=== PATIENT | male | born 1965 | race Caucasian/White ===

== ENCOUNTER 2020-08-02 12:50 | Inpatient (IN) | payer SELFPAY ==
[2020-08-02 13:22] LABS: Bacteria/HPF None Seen HPF (None Seen); Bilirubin Negative (Negative); Blood, Urine Negative (Negative); Clarity Clear (Clear); Glucose, Urine (Dipstick) Greater than 1000 mg/dL (Negative); Ketone, Urine 10 mg/dL (Negative); Leukocyte Negative Leu/uL (Negative); Nitrite Negative (Negative); Protein, Urine (Dipstick) 50 mg/dL (Neg-Trace); RBC/HPF 0-3 HPF (0-3); Squamous Epithelial None Seen HPF (0-3); Urobilinogen Normal mg/dL (Less than 2); WBC/HPF 0-3 HPF (0-3); pH, Urine 5.5 (5.0-9.0)
[2020-08-02 13:50] LABS: #Eosinphils 0.2 thou/uL (0.0-0.7); #Lymphocytes 1.3 thou/uL (1.20-3.40); #Monocytes 0.4 thou/uL (0.11-0.59); #Neutrophils 4.9 thou/uL (1.40-6.50); %Basophils 0.4 % (0.0-1.0); %Eosinophils 2.4 % (0.0-10.0); %Lymphocytes 18.7 % (21.0-51.0); %Monocytes 5.4 % (0.0-10.0); %Neutrophils 73.1 % (42.0-75.0); Hemoglobin 15.3 g/dL (14.0-18.0); Mean Corpuscular HGB CONC 34.9 g/dL (32.0-36.0); Mean Corpuscular Hemoglobin 31.4 pg (27.0-31.0); Mean Corpuscular Volume 89.8 fL (78.0-98.0); Platelet Count 179 thou/uL (130-400); RBC Distribution Width 11.4 % (11.5-14.5); Red Blood Cell (RBC) Count 4.89 mill/uL (4.70-6.10); White Blood Cell (WBC) Count 6.7 thou/uL (4.8-10.8)
--- NOTE | 2020-08-02 13:53 | CT ---
Exam: Head CT without contrast HISTORY: Right-sided paralysis. Altered mental status COMPARISON: none FINDINGS: Hemorrhage: No intraparenchymal hemorrhage or extra-axial hematoma. Brain parenchyma: Cortical dahl-white matter differentiation is preserved. No mass effect or midline shift. Basilar cisterns are patent. Ventricular system: Ventricles and sulci are patent and symmetric. Calvarium: Intact. Sinuses and mastoid air cells: Adequate aeration. IMPRESSION: No acute intracranial process.
[2020-08-02 14:15] LABS: ALT (SGPT) 33 U/L (8-55); AST (SGOT) 22 U/L (5-34); Albumin 4.2 g/dL (3.5-5.0); Alkaline Phosphatase 73 U/L (40-110); Anion Gap 15 mmol/L (10-20); BUN (Urea Nitrogen) 18 mg/dL (8.4-25.7); Bilirubin, Total 0.4 mg/dL (0.2-1.2); Calc. Creatinine Clearance 0 mL/min (70-130); Calcium 9.5 mg/dL (7.8-10.44); Carbon Dioxide 24 mmol/L (22-29); Chloride 103 mmol/L (98-107); Globulin 3.1 g/dL (2.4-3.5); Glucose 386 mg/dL (70-105); Potassium 3.9 mmol/L (3.5-5.1); Protein, Total 7.3 g/dL (6.0-8.3); Sodium 138 mmol/L (136-145)
[2020-08-02 14:37] LABS: CKMB 3.1 ng/mL (0-6.6)
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
[2020-08-02 18:26] LABS: SARS-CoV-2 NAA Rapid Test Not Detected (NotDetected)
[2020-08-02 18:39] LABS: Troponin I 0.083 ng/mL (< 0.028)
[2020-08-02] MEDS ORDERED: Dextrose 50% Abboject 50 ML SYRINGE SLOW IVP PRN (19:14)
[2020-08-02] MEDS ORDERED: Dextrose 5% in Water 1,000 ML IV PRN (19:14)
[2020-08-02] MEDS: Atorvastatin Calcium 40 MG TAB PO SCH (20:11)
[2020-08-02] MEDS: Insulin Glargine 10 UNITS in Pre-Filled Syringe SC SCH (20:43)
[2020-08-02 20:51] VITALS: BMI 38.0
--- NOTE | 2020-08-02 21:26 | ULT ---
CAROTID DOPPLER: Ultrasound doppler study is performed on the extracranial carotid arteries. Indications: Right sided weakness. FINDINGS: Ultrasound and doppler study is performed with color doppler, spectral analysis and velocity recordin gs. Images show intimal thickening bilaterally. Mild echogenic plaque. Velocities within normal range in both internal carotid arteries. No evidence of hemodynamically sign ificant stenosis involving either extracranial internal carotid artery. The vertebral arteries are antegrade. IMPRESSION: 1. Intimal thickening and mild echogenic plaque. 2. No evidence of significant stenosis. POS: AGW
[2020-08-02 21:56] LABS: Troponin I 0.083 ng/mL (< 0.028)
[2020-08-03 05:43] LABS: #Eosinphils 0.2 thou/uL (0.0-0.7); #Lymphocytes 1.8 thou/uL (1.20-3.40); #Monocytes 0.5 thou/uL (0.11-0.59); #Neutrophils 3.5 thou/uL (1.40-6.50); %Basophils 0.4 % (0.0-1.0); %Eosinophils 3.8 % (0.0-10.0); %Lymphocytes 29.8 % (21.0-51.0); Hemoglobin 14.7 g/dL (14.0-18.0); Mean Corpuscular HGB CONC 35.8 g/dL (32.0-36.0); Mean Corpuscular Hemoglobin 31.9 pg (27.0-31.0); Mean Corpuscular Volume 89.1 fL (78.0-98.0); Platelet Count 156 thou/uL (130-400); RBC Distribution Width 11.4 % (11.5-14.5)
[2020-08-03 06:26] LABS: Anion Gap 13 mmol/L (10-20); BUN (Urea Nitrogen) 14 mg/dL (8.4-25.7); Calc. Creatinine Clearance 174 mL/min (70-130); Carbon Dioxide 25 mmol/L (22-29); Cardiac Risk 7.8 (Less than 4.5); Chloride 104 mmol/L (98-107); Cholesterol 296 mg/dl (< 200 Desired); Glucose 243 mg/dL (70-105); HDL Cholesterol 38 mg/dL (>60 Neg Risk); LDL Cholesterol, Calculated 200 mg/dL; Sodium 138 mmol/L (136-145); Triglycerides 289 mg/dL (Less than 150)
[2020-08-03] MEDS: HumaLOG 300 UNITS/3 ML VIAL SC PRN ×3 (07:53→18:08)
[2020-08-03] MEDS ORDERED: FLU VACC QS2020-21(6MOS UP)/PF 60 MCG/0.5 ML SYRINGE IM ONE (09:00)
[2020-08-03] MEDS: Enoxaparin Sodium 40 MG/0.4 ML SYRINGE SC SCH (09:26)
[2020-08-03] MEDS: Aspirin 325 mg Enteric Coated Tablet PO SCH (09:26)
[2020-08-03] MEDS: Lorazepam 1 MG TAB PO PRN ×2 (12:21→20:45)
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
[2020-08-03] MEDS: Nicotine 14 MG PATCH TD SCH (13:37)
--- NOTE | 2020-08-03 18:42 | PDOC.HOSPP ---
- Subjective Encounter Date: 08/03/20 Subjective: Feeling ok in general. Still has about the same weakness on the right side. Tried MRI today, but couldn't tolerate it. He dips 2-3 cans of snuff per day and was feeling he withdrawal. He took a dip and that helped. - Objective Vital Signs & Weight: Vital Signs (12 hours) Temp Pulse Pulse Pulse Resp BP BP 08/03/20 15:35 98.5 F 94 16 08/03/20 13:40 91 89 133/78 158/73 H 08/03/20 11:00 97.7 F 85 20 08/03/20 10:43 85 82 134/80 142/77 H 08/03/20 07:53 98.2 F 82 20 BP BP Pulse Ox 08/03/20 15:35 136/76 98 08/03/20 13:40 08/03/20 11:00 134/80 96 08/03/20 10:43 08/03/20 07:53 121/83 96 Weight Weight 242 lb 11.2 oz I&O: 08/02/20 08/03/20 08/04/20 06:59 06:59 06:59 Intake Total 340 1200 Output Total 500 Balance -160 1200 Result Diagrams: 08/03/20 05:17 08/03/20 05:16 Additional Labs: Accuchecks 08/03/20 08/03/20 08/02/20 17:33 12:32 20:16 POC Glucose 322 H 231 H 257 H Hospitalist ROS - Medication Medications: Active Medications Generic Name Dose Route Start Last Admin Trade Name Yen PRN Reason Stop Dose Admin Aspirin 325 mg 08/03/20 09:00 08/03/20 09:26 Aspirin 325 Mg Enteric Coated Tablet PO 325 mg DAILY SHERICE Administration Atorvastatin Calcium 40 mg 08/02/20 21:00 08/02/20 20:11 Atorvastatin Calcium 40 Mg Tab PO 40 mg HS SHERICE Administration Enoxaparin Sodium 40 mg 08/03/20 09:00 08/03/20 09:26 Enoxaparin Sodium 40 Mg/0.4 Ml Syringe SC 40 mg 0900 SHERICE Administration Insulin Glargine 10 units/ 0.1 mls @ 0 mls/hr 08/02/20 21:00 08/02/20 20:43 Miscellaneous Medication SC 0.1 mls HS SHERICE Administration Insulin Human Lispro 0 units 08/02/20 19:14 08/03/20 18:08 Humalog 300 Units/3 Ml Vial SC 8 unit .MODERATE SLIDING SC PRN Administration Moderate Correctional Scale Lorazepam 1 mg 08/03/20 08:54 08/03/20 12:21 Lorazepam 1 Mg Tab PO 1 mg Q4H PRN Administration Anxiety/Agitation Nicotine 14 mg 08/03/20 12:00 08/03/20 13:37 Nicotine 14 Mg Patch TD 14 mg Q24HR SHERICE Administration Sodium Chloride 10 ml 08/02/20 19:14 08/03/20 09:27 Flush - Normal Saline 10 Ml Syringe IVF 10 ml PRN PRN Administration Saline Flush Hospitalist Exam Vitals: Vital Signs (12 hours) Temp Pulse Pulse Pulse Resp BP BP 08/03/20 15:35 98.5 F 94 16 08/03/20 13:40 91 89 133/78 158/73 H 08/03/20 11:00 97.7 F 85 20 08/03/20 10:43 85 82 134/80 142/77 H 08/03/20 07:53 98.2 F 82 20 BP BP Pulse Ox 08/03/20 15:35 136/76 98 08/03/20 13:40 08/03/20 11:00 134/80 96 08/03/20 10:43 08/03/20 07:53 121/83 96 Weight Weight 242 lb 11.2 oz General Appearance: NAD, awake alert Neck: supple, symmetric, no JVD Heart: RRR, no murmur, no gallops, no rubs Respiratory: CTAB, no wheezes, no rales, no ronchi Gastrointestinal: soft, non-tender, non-distended, normal bowel sounds Extremities: no cyanosis, no clubbing, no edema Skin: normal turgor Neurological - other findings: RUE and RLE weakness. Psychiatric: normal affect, normal behavior, A&O x 3 Hosp A/P (1) Right hemiplegia Code(s): G81.91 - HEMIPLEGIA, UNSPECIFIED AFFECTING RIGHT DOMINANT SIDE Status: Acute (2) Hypertension Code(s): I10 - ESSENTIAL (PRIMARY) HYPERTENSION Status: Acute (3) Alcohol abuse Code(s): F10.10 - ALCOHOL ABUSE, UNCOMPLICATED Status: Chronic (4) Diabetes mellitus type 2 in obese Code(s): E11.69 - TYPE 2 DIABETES MELLITUS WITH OTHER SPECIFIED COMPLICATION; E66.9 - OBESITY, UNSPECIFIED Status: Chronic (5) Tobacco abuse Code(s): Z72.0 - TOBACCO USE Status: Chronic (6) HLD (hyperlipidemia) Code(s): E78.5 - HYPERLIPIDEMIA, UNSPECIFIED Status: Acute - Plan Right hemiplegia (incomplete): Concerning for CVA. Initial CT was negative. Unable to get MRI today due to patient anxiety. Neuro consult appreciated. Added C-spine MRI. PT/OT. Aspirin, Statin. DM: Blood sugars consistently over 200 on Lantus 10 and aggressive SSI. Check A1c. Increase Lantus. Tobacco abuse: Nicotine patch. Alcohol abuse: PRN bzd's. Appears quite calm with normal affect at the time of my exam. HLD: Statin.
[2020-08-03] MEDS: Insulin Glargine 10 UNITS in Pre-Filled Syringe SC SCH (20:37)
[2020-08-03] MEDS: Atorvastatin Calcium 40 MG TAB PO SCH (20:42)
[2020-08-03] MEDS: Acetaminophen 325 MG TAB PO PRN (20:44)
[2020-08-04] MEDS: HumaLOG 300 UNITS/3 ML VIAL SC PRN ×4 (05:06→20:42)
[2020-08-04 05:44] LABS: Hemoglobin A1c 10.8 % (4.0-6.0)
[2020-08-04] MEDS ORDERED: Bisacodyl 5 MG TAB PO PRN (08:08)
[2020-08-04] MEDS ORDERED: Sodium Chloride 0.65% Nasal 44 ML BOT EA NARE PRN (08:08)
[2020-08-04] MEDS ORDERED: Cepastat Lozenges 1 LOZ PO PRN (08:08)
[2020-08-04] MEDS ORDERED: Ondansetron PF 4 MG/2 ML Vial IVP PRN (08:08)
[2020-08-04] MEDS ORDERED: Zolpidem Tartrate 5 MG TAB PO PRN (08:08)
[2020-08-04] MEDS ORDERED: Senokot S 8.6-50 MG TAB PO PRN (08:08)
[2020-08-04] MEDS ORDERED: GUAIFENESIN SF SOLN 200 MG/10 ML UDCUP PO PRN (08:08)
[2020-08-04] MEDS ORDERED: hydrALAZINE 20 MG/ML VIAL SLOW IVP PRN (08:08)
[2020-08-04] MEDS ORDERED: Benzonatate 100 MG CAP PO PRN (08:08)
[2020-08-04] MEDS ORDERED: HYDROcodone/Acetaminophen 5/325 mg Tablet PO PRN (08:08)
[2020-08-04] MEDS ORDERED: Ondansetron ODT 4 MG TAB PO PRN (08:08)
[2020-08-04] MEDS ORDERED: Calcium Carbonate 500 MG ChewTAB PO PRN (08:08)
[2020-08-04] MEDS ORDERED: Loperamide HCl 2 MG CAP PO PRN (08:08)
[2020-08-04] MEDS ORDERED: Loratadine 10 MG TAB PO PRN (08:08)
[2020-08-04] MEDS: Acetaminophen 325 MG TAB PO PRN (08:50)
[2020-08-04] MEDS: Aspirin 325 mg Enteric Coated Tablet PO SCH (08:50)
[2020-08-04] MEDS: Enoxaparin Sodium 40 MG/0.4 ML SYRINGE SC SCH (08:51)
[2020-08-04] MEDS ORDERED: Insulin Glargine 10 UNITS in Pre-Filled Syringe 1 EACH SC SCH ×2 (09:00→21:00)
[2020-08-04] MEDS ORDERED: Lorazepam 2 MG/ML VIAL SLOW IVP SCH (10:30)
[2020-08-04] MEDS: Nicotine 14 MG PATCH TD SCH (11:26)
--- NOTE | 2020-08-04 11:49 | PDOC.HOSPP ---
- Subjective Encounter Date: 08/04/20 Encounter Time: 08:15 Subjective: Patient seen and examined. No new complaints. No overnight events, patient has right-sided weakness, patient is willing to go for MRI but he is claustrophobic - Objective Vital Signs & Weight: Vital Signs (12 hours) Temp Pulse Resp BP Pulse Ox 08/04/20 08:00 97.8 F 94 20 139/72 95 08/04/20 03:34 97.7 F 62 16 117/57 L 98 08/04/20 00:00 98.6 F 79 14 139/69 98 Weight Weight 242 lb 11.2 oz I&O: 08/03/20 08/04/20 08/05/20 06:59 06:59 06:59 Intake Total 340 1200 Output Total 500 Balance -160 1200 Result Diagrams: 08/03/20 05:17 08/03/20 05:16 Additional Labs: Accuchecks 08/04/20 08/04/20 08/03/20 10:52 05:03 20:36 POC Glucose 376 H 257 H 162 H 08/03/20 08/03/20 08/03/20 17:33 12:32 10:49 POC Glucose 322 H 231 H 257 H Radiology Reviewed by me: Yes Hospitalist ROS - Review of Systems ENT: denies: ear pain, ear discharge, nose pain, nose discharge, nose congest ion, mouth pain, mouth swelling, throat pain, throat swelling, other Respiratory: denies: cough, dry, shortness of breath, hemoptysis, SOB with excertion, pleuritic pain, sputum, wheezing, other Cardiovascular: denies: chest pain, palpitations, orthopnea, paroxysmal noc. dyspnea, edema, light headedness, other Gastrointestinal: denies: nausea, vomiting, abdominal pain, diarrhea, constipation, melena, hematochezia, other Genitourinary: denies: dysuria, frequency, incontinence, hematuria, retention, other Musculoskeletal: reports: neck pain, shoulder pain. denies: arm pain, back pain, hand pain, leg pain, foot pain, other Skin: denies: rash, lesions, maribel, bruising, other Neurological: reports: weakness. denies: numbness, incoordination, change in speech, confusion, seizures, other - Medication Medications: Active Medications Generic Name Dose Route Start Last Admin Trade Name Freq PRN Reason Stop Dose Admin Acetaminophen 650 mg 08/02/20 19:14 08/04/20 08:50 Acetaminophen 325 Mg Tab PO 650 mg Q4H PRN Administration Headache/Fever/Mild Pain (1-3) Aspirin 325 mg 08/03/20 09:00 08/04/20 08:50 Aspirin 325 Mg Enteric Coated Tablet PO 325 mg DAILY SHERICE Administration Atorvastatin Calcium 40 mg 08/02/20 21:00 08/03/20 20:42 Atorvastatin Calcium 40 Mg Tab PO 40 mg HS SHERICE Administration Enoxaparin Sodium 40 mg 08/03/20 09:00 08/04/20 08:51 Enoxaparin Sodium 40 Mg/0.4 Ml Syringe SC 40 mg 0900 SHERICE Administration Insulin Glargine 10 units/ 0.1 mls @ 0 mls/hr 08/04/20 09:00 08/04/20 10:11 Miscellaneous Medication SC 0.1 mls QAM SHERICE Administration Insulin Human Lispro 0 units 08/02/20 19:14 08/04/20 11:20 Humalog 300 Units/3 Ml Vial SC 13 unit .AGGRESSIVE SLIDING PRN Administration Aggressive Correctional Scale Lorazepam 1 mg 08/03/20 08:54 08/03/20 20:45 Lorazepam 1 Mg Tab PO 1 mg Q4H PRN Administration Anxiety/Agitation Nicotine 14 mg 08/03/20 12:00 08/04/20 11:26 Nicotine 14 Mg Patch TD 14 mg Q24HR SHERICE Administration Sodium Chloride 10 ml 08/02/20 19:14 08/03/20 20:42 Flush - Normal Saline 10 Ml Syringe IVF 10 ml PRN PRN Administration Saline Flush Hospitalist Exam Vitals: Vital Signs (12 hours) Temp Pulse Resp BP Pulse Ox 08/04/20 08:00 97.8 F 94 20 139/72 95 08/04/20 03:34 97.7 F 62 16 117/57 L 98 08/04/20 00:00 98.6 F 79 14 139/69 98 Weight Weight 242 lb 11.2 oz General Appearance: NAD, awake alert Eye: PERRL, anicteric sclera ENT: normocephalic atraumatic, no oropharyngeal lesions Neck: supple, symmetric, no JVD, no thyromegaly Heart: RRR, no murmur, no gallops, no rubs Respiratory: no wheezes, no rales, no ronchi Gastrointestinal: soft, non-tender, non-distended Extremities: no cyanosis, no clubbing, no edema Skin: normal turgor, no lesions Neurological - other findings: On examination patient has right-sided weakness, Musculoskeletal: normal tone, normal strength, no muscle wasting Psychiatric: normal affect, normal behavior, A&O x 3 Hosp A/P (1) Right hemiplegia Code(s): G81.91 - HEMIPLEGIA, UNSPECIFIED AFFECTING RIGHT DOMINANT SIDE Status: Acute (2) HLD (hyperlipidemia) Code(s): E78.5 - HYPERLIPIDEMIA, UNSPECIFIED Status: Acute (3) Hypertension Code(s): I10 - ESSENTIAL (PRIMARY) HYPERTENSION Status: Acute (4) Alcohol abuse Code(s): F10.10 - ALCOHOL ABUSE, UNCOMPLICATED Status: Chronic (5) Diabetes mellitus type 2 in obese Code(s): E11.69 - TYPE 2 DIABETES MELLITUS WITH OTHER SPECIFIED COMPLICATION; E66.9 - OBESITY, UNSPECIFIED Status: Chronic (6) Tobacco abuse Code(s): Z72.0 - TOBACCO USE Status: Chronic - Plan old records reviewed/req, PT/OT, DVT proph w/lovenox Today we will try to get MRI brain and MRI cervical spine, patient is claustrophobic so we will give him lorazepam 2 mg IV one-time dose before MRI, His blood sugar is well not controlled so we will increase his insulin to twice daily, Expecting his discharge tomorrow, Continue Lipitor 40 mg p.o. nightly and aspirin 325 mg p.o. daily, Neurology following
--- NOTE | 2020-08-04 13:21 | MRI ---
EXAM: MRI of the brain without contrast HISTORY: Right-sided weakness since Sunday COMPARISON: None TECHNIQUE: Multiplanar multisequence MR images were obtained of the brain without IV contrast. FINDINGS: Scattered subtle foci of high T2/FLAIR signal in the subcortical and periventricular white matter are likely secondary to small vessel ischemic disease. There is a 8 mm small area of restricted diffusion and high FLAIR signal in the left aspect of the po ns. No hydronephrosis. No extra-axial fluid collection or intracranial hemorrhage. The expected flow voids are present. Corpus callosum, pituitary, and craniocervical junction are within normal limits. The calvarium and overlying soft tissues are unremarkable. The paranasal sinuses and mastoid air cells are well aerated. IMPRESSION: Small acute infarction in the left aspect of the laura.
--- NOTE | 2020-08-04 14:03 | MRI ---
MRI CERVICAL SPINE NONCONTRAST: 08/04/20 HISTORY: 54-year-old male with right upper extremity weakness. FINDINGS: Bone marrow signal is essentially normal. Vertebral body heights are maintained. No high grade disc s pace narrowing at any level. Cervical spinal cord is normal in size and signal. No syrinx. Cervical spinal canal is diffusely small in caliber on a congenital basis due to developmentally shor t pedicles. No high grade facet DJD at any level except for right C2-3 where there is moderate facet DJD. C1-2: No central spinal canal stenosis. C2-3: No central spinal canal or left neural foraminal stenosis. Mild right neural foraminal stenosis due to the facet hypertrophy. C3-4: Mild central canal stenosis, almost entirely on developmental basis. Mild to moderate right oscar ral foraminal stenosis. No left neural foraminal stenosis. C4-5: Mild, shallow broad based disc protrusion encroaches upon the anterior aspect of spinal canal, causing moderate central spinal canal stenosis. Small bilateral uncinate process osteophytes encroach upon bilateral neural foramina causing somewhat severe bilateral neural foraminal stenosis. C5-6: Moderate sized right and small left uncinate process osteophytes encroach upon bilateral neural foramina, causing moderate right and severe left neural foraminal stenosis. Small central focal disc protrusion versus disc/osteophyte complex indents the ventral aspect of spinal canal. Mild to modera te central spinal canal stenosis. C6-7: Small bilateral uncinate process osteophytes cause mild right and moderate left neural foramina l stenosis. Mild to moderate central spinal canal stenosis. C7-T1: Small right and moderate to large left uncinate process osteophytes. No significant right ne ural foraminal stenosis. Moderate left neural foraminal stenosis. No central spinal canal stenosis. IMPRESSION: 1. Mild cervical spondylosis exacerbating a developmentally small caliber spinal canal. 2. Multilevel high grade neural foraminal stenosis. 3. No cord compression. POS: [facility]
--- NOTE | 2020-08-04 14:04 | PDOC.NEUPN ---
- Subjective Encounter Date: 08/04/20 Subjective: Mr. Silva continues to have right-sided weakness - Objective Vital Signs & Weight: Vital Signs (12 hours) Temp Pulse Resp BP Pulse Ox 08/04/20 11:53 98.1 F 84 20 135/74 96 08/04/20 08:44 95 08/04/20 08:00 97.8 F 94 20 139/72 95 08/04/20 03:34 97.7 F 62 16 117/57 L 98 Weight Weight 242 lb 11.2 oz I&O: 08/03/20 08/04/20 08/05/20 06:59 06:59 06:59 Intake Total 340 1200 Output Total 500 Balance -160 1200 Result Diagrams: 08/03/20 05:17 08/03/20 05:16 Additional Labs: Accuchecks 08/04/20 08/04/20 08/03/20 10:52 05:03 20:36 POC Glucose 376 H 257 H 162 H 08/03/20 08/03/20 17:33 10:49 POC Glucose 322 H 257 H Radiology Reviewed by me: Yes EKG Reviewed by me: Yes ROS - Review of Systems Constitutional: denies: fever, chills, sweats, weakness, malaise, other Eyes: denies: pain, vision change, conjunctivae inflammation, eyelid inflammation, redness, other ENT: denies: ear pain, ear discharge, nose pain, nose discharge, nose c ongestion, mouth pain, mouth swelling, throat pain, throat swelling, other Respiratory: denies: cough, dry, shortness of breath, hemoptysis, SOB with excertion, pleuritic pain, sputum, wheezing, other Gastrointestinal: denies: nausea, vomiting, abdominal pain, diarrhea, constipation, melena, hematochezia, other Musculoskeletal: reports: neck pain. denies: shoulder pain, arm pain, back pain, hand pain, leg pain, foot pain, other Skin: denies: rash, lesions, maribel, bruising, other Neurological: reports: weakness. denies: numbness, incoordination, change in speech, confusion, seizures, other - Medication Medications: Active Medications Generic Name Dose Route Start Last Admin Trade Name Freq PRN Reason Stop Dose Admin Acetaminophen 650 mg 08/02/20 19:14 08/04/20 08:50 Acetaminophen 325 Mg Tab PO 650 mg Q4H PRN Administration Headache/Fever/Mild Pain (1-3) Aspirin 325 mg 08/03/20 09:00 08/04/20 08:50 Aspirin 325 Mg Enteric Coated Tablet PO 325 mg DAILY SHERICE Administration Atorvastatin Calcium 40 mg 08/02/20 21:00 08/03/20 20:42 Atorvastatin Calcium 40 Mg Tab PO 40 mg HS SHERICE Administration Enoxaparin Sodium 40 mg 08/03/20 09:00 08/04/20 08:51 Enoxaparin Sodium 40 Mg/0.4 Ml Syringe SC 40 mg 0900 SHERICE Administration Insulin Glargine 10 units/ 0.1 mls @ 0 mls/hr 08/04/20 09:00 08/04/20 10:11 Miscellaneous Medication SC 0.1 mls QAM SHERICE Administration Insulin Human Lispro 0 units 08/02/20 19:14 08/04/20 11:20 Humalog 300 Units/3 Ml Vial SC 13 unit .AGGRESSIVE SLIDING PRN Administration Aggressive Correctional Scale Lorazepam 1 mg 08/03/20 08:54 08/03/20 20:45 Lorazepam 1 Mg Tab PO 1 mg Q4H PRN Administration Anxiety/Agitation Lorazepam 2 mg 08/04/20 10:30 08/04/20 12:39 Lorazepam 2 Mg/Ml Vial SLOW IVP 2 mg WILLCALL SHERICE Administration Nicotine 14 mg 08/03/20 12:00 08/04/20 11:26 Nicotine 14 Mg Patch TD 14 mg Q24HR SHERICE Administration Sodium Chloride 10 ml 08/02/20 19:14 08/03/20 20:42 Flush - Normal Saline 10 Ml Syringe IVF 10 ml PRN PRN Administration Saline Flush - Exam General Appearance: awake alert Eye: PERRL ENT: normocephalic atraumatic Neck: supple Respiratory: CTAB Cardiovascular: RRR Gastrointestinal: soft Extremities: no cyanosis Skin: normal turgor Neurological: no new deficit Musculoskeletal: normal tone PSYCH: normal affect, normal behavior, A&O x 3 Results - Labs Result Diagrams: 08/03/20 05:17 08/03/20 05:16 Lab results: WBC 6.0 thou/uL (4.8-10.8) 08/03/20 05:17 Hgb 14.7 g/dL (14.0-18.0) 08/03/20 05:17 Hct 41.0 % (42.0-52.0) L 08/03/20 05:17 MCV 89.1 fL (78.0-98.0) 08/03/20 05:17 Plt Count 156 thou/uL (130-400) 08/03/20 05:17 Neutrophils % 58.0 % (42.0-75.0) 08/03/20 05:17 Sodium 138 mmol/L (136-145) 08/03/20 05:16 Potassium 4.0 mmol/L (3.5-5.1) 08/03/20 05:16 Chloride 104 mmol/L (98-107) 08/03/20 05:16 Carbon Dioxide 25 mmol/L (22-29) 08/03/20 05:16 BUN 14 mg/dL (8.4-25.7) 08/03/20 05:16 Creatinine 0.74 mg/dL (0.7-1.3) 08/03/20 05:16 Glucose 243 mg/dL (70-105) H 08/03/20 05:16 Calcium 9.0 mg/dL (7.8-10.44) 08/03/20 05:16 Total Bilirubin 0.4 mg/dL (0.2-1.2) 08/02/20 13:30 AST 22 U/L (5-34) 08/02/20 13:30 ALT 33 U/L (8-55) 08/02/20 13:30 Alkaline Phosphatase 73 U/L (40-110) 08/02/20 13:30 CK-MB (CK-2) 3.1 ng/mL (0-6.6) 08/02/20 13:30 Troponin I 0.083 ng/mL (< 0.028) H 08/02/20 20:55 Serum Total Protein 7.3 g/dL (6.0-8.3) 08/02/20 13:30 Albumin 4.2 g/dL (3.5-5.0) 08/02/20 13:30 Urine Ketones 10 mg/dL (Negative) A 08/02/20 13:03 Urine Blood Negative (Negative) 08/02/20 13:03 Urine Nitrite Negative (Negative) 08/02/20 13:03 Ur Leukocyte Esterase Negative [place]/uL (Negative) 08/02/20 13:03 Urine RBC 0-3 HPF (0-3) 08/02/20 13:03 Urine WBC 0-3 HPF (0-3) 08/02/20 13:03 Ur Squamous Epith Cells None Seen HPF (0-3) 08/02/20 13:03 Urine Bacteria None Seen HPF (None Seen) 08/02/20 13:03 - Radiology Interpretation CT scan - head Additional Comment: CT is negative for acute intracranial pathology. PN A/P (1) Right hemiplegia Code(s): G81.91 - HEMIPLEGIA, UNSPECIFIED AFFECTING RIGHT DOMINANT SIDE Status: Acute (2) HLD (hyperlipidemia) Code(s): E78.5 - HYPERLIPIDEMIA, UNSPECIFIED Status: Acute (3) Hypertension Code(s): I10 - ESSENTIAL (PRIMARY) HYPERTENSION Status: Acute (4) Alcohol abuse Code(s): F10.10 - ALCOHOL ABUSE, UNCOMPLICATED Status: Chronic (5) Diabetes mellitus type 2 in obese Code(s): E11.69 - TYPE 2 DIABETES MELLITUS WITH OTHER SPECIFIED COMPLICATION; E66.9 - OBESITY, UNSPECIFIED Status: Chronic (6) Tobacco abuse Code(s): Z72.0 - TOBACCO USE Status: Chronic - Plan Daily Plan: PT/OT, DVT proph w/SCDs Mr. Jackson is a 54-year-old male who was presented with right-sided weakness and neck pain for 3 days. There is a concern about stroke versus cervical disc disease. Initial head CT reviewed which was negative for acute intracranial pathology. The patient is unable to tolerate MRI brain. Will repeat MRI today of the brain and also of the cervical spine. Carotid Dopplers did not reveal hemodynamically significant stenosis 2D echo to evaluate for left ventricular ejection fraction is essentially unremarkable with left ventricular ejection fraction 60 to 65% and no thrombus or PFO Neurochecks every 4 hours. Telemetry to rule out arrhythmias. Strict control of blood glucose and blood pressure. Continue home medications. Continue medical management per primary team. No aspirin high intensity statin for secondary stroke prevention PT/OT/speech. DVT prophylaxis. Plan discussed in detail with the patient and also the nursing staff
[2020-08-04] MEDS: Atorvastatin Calcium 40 MG TAB PO SCH (19:56)
[2020-08-05] MEDS: HumaLOG 300 UNITS/3 ML VIAL SC PRN (05:06)
[2020-08-05] MEDS: Aspirin 325 mg Enteric Coated Tablet PO SCH (07:58)
[2020-08-05] MEDS: Enoxaparin Sodium 40 MG/0.4 ML SYRINGE SC SCH (07:58)
[2020-08-05 08:02] VITALS: BP 142/84; TEMP 97.6
[2020-08-05] MEDS ORDERED: Lisinopril 5 MG TAB PO SCH (09:00)
[2020-08-05] MEDS ORDERED: Insulin Glargine 15 UNITS in Pre-Filled Syringe 1 EACH SC SCH ×2 (09:00→21:00)
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
== END 2020-08-05 12:29 | disposition home or self-care (01) | DRG 65 ==
LOC: ERS 12:50 → 3SE 15:00
PROVIDERS: ADMIT Internal Medicine; ATTEND Internal Medicine
DX: I63.00 Cerebral infarction due to thrombosis of unspecified precerebral artery (principal); G81.91 Hemiplegia, unspecified affecting right dominant side; Z20.822 Contact with and (suspected) exposure to COVID-19; F17.210 Nicotine dependence, cigarettes, uncomplicated; I10 Essential (primary) hypertension; F10.10 Alcohol abuse, uncomplicated; E78.5 Hyperlipidemia, unspecified; M54.2 Cervicalgia; M54.9 Dorsalgia, unspecified; G89.29 Other chronic pain; E11.65 Type 2 diabetes mellitus with hyperglycemia; M47.812 Spondylosis without myelopathy or radiculopathy, cervical region
CPT/HCPCS: 0240U; 36415; 36416; 70450; 70551; 72141; 80048; 80053; 80061; 81003; 81015; 82553; 83036; 84484; 85025; 93005; 93306; 93880; 94760; J1650; J1815; J2060